=== PATIENT | female | born 1985 | race Caucasian/White ===

== ENCOUNTER 2018-06-15 18:19 | Emergency (ER) | payer OTHER ==
[2018-06-15 18:19] VITALS: BMI 35.9
[2018-06-15 18:27] VITALS: BP 125/89; PULSE 130; TEMP 98.8; O2SAT 99
--- NOTE | 2018-06-15 18:50 | C.PDOC ---
History Of Present Illness 33 y/o female presents to the ER for wound evaluation to the left breast. Patient had a lumpectomy performed by Dr.Anroy Bear in February 2018. Patient states that she had an open wound 3 weeks after the surgery which healed in April 2018. She reports that she has an open wound again with active bleeding. She notes that she went to see [facility] [place] and she was treated with Morphine and Dilaudid. She went to see today because she is still having pain, but he told her to go home. Patient states she wants a new doctor and still has pain, she is requesting Dilaudid. Denies having fever and chills. Time Seen by Provider: 06/15/18 18:30 Chief Complaint (Nursing): Breast Problem History Per: Patient History/Exam Limitations: no limitations Onset/Duration Of Symptoms: Days Current Symptoms Are (Timing): Still Present Severity: Moderate Past Medical History Reviewed: Historical Data, Nursing Documentation, Vital Signs Vital Signs: Last Vital Signs Temp 98.8 F 06/15/18 18:22 Pulse 130 H 06/15/18 18:22 Resp 19 06/15/18 18:22 BP 125/89 06/15/18 18:22 Pulse Ox 99 06/15/18 18:22 - Medical History PMH: Hyperlipidemia Surgical History: Appendectomy Family History: States: No Known Family Hx - Social History Hx Alcohol Use: Yes Hx Substance Use: No - Immunization History Hx Tetanus Toxoid Vaccination: No Hx Influenza Vaccination: No Hx Pneumococcal Vaccination: No Review Of Systems Except As Marked, All Systems Reviewed And Found Negative. Constitutional: Negative for: Fever, Chills Skin: Positive for: Other (open wound to left breast) Physical Exam - Physical Exam Appears: Non-toxic, No Acute Distress Skin: Normal Color, Warm, Dry, Other (left breast under crease well healed surgical scar, punctate 4mm opening with serosanguineous discharge and tenderness to area out of proportion) Head: Atraumatic, Normacephalic Eye(s): bilateral: Normal Inspection, EOMI Nose: Normal Oral Mucosa: Moist Neck: Supple Chest: Symmetrical Cardiovascular: Rhythm Regular Respiratory: Normal Breath Sounds Extremity: Bilateral: Atraumatic, Normal ROM Neurological/Psych: Oriented x3, Normal Speech ED Course And Treatment O2 Sat by Pulse Oximetry: 99 (RA) Pulse Ox Interpretation: Normal Medical Decision Making Medical Decision Making: Impression: Breast pain [facility] reviewed: 06/12/2018 ZOLPIDEM TARTRATE 10 MG TABLET 30.0 06/12/2018 ALPRAZOLAM 2 MG TABLET 30.0 06/08/2018 TRAMADOL HCL 50 MG TABLET 20.0 05/16/2018 ZOLPIDEM TARTRATE 10 MG TABLET 30.0 05/12/2018 ALPRAZOLAM 2 MG TABLET 30.0 04/14/2018 ZOLPIDEM TARTRATE 10 MG TABLET 30.0 04/14/2018 ALPRAZOLAM 2 MG TABLET 30.0 03/13/2018 OXYCODONE HCL 5 MG TABLET 20.0 03/08/2018 ALPRAZOLAM 2 MG TABLET 30.0 03/06/2018 OXYCODONE HCL 5 MG TABLET 30.0 Plan: * Vicodin PO * Wound Care 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 Per surgeon, the patient has been seen at [facility] and at his office several times since the surgery. He states her US yesterday shows no hematoma. He states he saw her in his office today and prescribed Vicodin 5-300, 5 pills, but the pharmacy called office stating insurance will not cover the medication. He states he told the patient to return to his office tomorrow for another prescription. In his opinion the patient has pain out of proportion and patient continues to ask for pain medications. He recommends pain management. Cell Dr Perez [phone] RN cleansed wound and sterile dressing was applied. Treated patient with Vicodin PO. I explained to the patient there is no acute infection or surgical concern at this time. She will have to follow up with her doctor. 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 - Scribe Statement The provider has reviewed the documentation as recorded by the Ligiaibe Meme Collins Provider Attestation All medical record entries made by the Ligiaibdanielle were at my direction and personally dictated by me. I have reviewed the chart and agree that the record accurately reflects my personal performance of the history, physical exam, medic al decision making, and the department course for this patient. I have also personally directed, reviewed, and agree with the discharge instructions and disposition.
--- NOTE | 2018-06-15 18:50 | C.PDOC ---
Time Seen by Provider: 06/15/18 18:30 Chief Complaint (Nursing): Breast Problem Past Medical History Vital Signs: Last Vital Signs Temp 98.8 F 06/15/18 18:22 Pulse 130 H 06/15/18 18:22 Resp 19 06/15/18 18:22 BP 125/89 06/15/18 18:22 Pulse Ox 99 06/15/18 18:22 - Medical History PMH: Hyperlipidemia Surgical History: Appendectomy Family History: States: Unknown Family Hx - Social History Hx Alcohol Use: Yes Hx Substance Use: No - Immunization History Hx Tetanus Toxoid Vaccination: No Hx Influenza Vaccination: No Hx Pneumococcal Vaccination: No ED Course And Treatment O2 Sat by Pulse Oximetry: 99 Disposition - Disposition
[2018-06-15] MEDS ORDERED: Hydrocodone/Acetaminophen 5 mg /300 mg Tab PO STA (19:39)
[2018-06-15] MEDS ORDERED: Hydrocodone/Acetaminophen 5 mg /300 mg Tab PO ONE (19:44)
[2018-06-15 19:58] VITALS: RESP 20
== END 2018-06-15 19:57 | disposition home or self-care (01) ==
LOC: C.ER 18:19
DX: Z48.89 Encounter for other specified surgical aftercare (principal)